=== PATIENT | male | born 1955 | race Caucasian/White ===

== ENCOUNTER 2024-07-04 09:57 | Observation (INO) ==
--- NOTE | 2024-07-01 08:31 | Anesthesiology Consultation ---
Date of Service July 01, 2024 Assessment & Plan (1) Encounter for pre-operative examination: - Per geographic information systems manager on 06/25/24: No known infectious disease contacts, current infectious disease symptoms in past 10 days or COVID positive test result in the past 30 days. Chart Review Chart Review: Acceptable Risk for Surgery and Patient NOT seen in Pre Admission Testing History Surgery Operation Date: 07/04/24 08:25 Proposed Procedures p Transurethral Resection Prostate - Tyler Hogue MD Height/Weight Height: 5 ft 4.5 in Weight: 74.843 kg Allergies Allergy/AdvReac Type Severity Reaction Status Date / Time No Known Allergies Allergy Unknown Verified 06/25/24 13:48 Medications Home Medications Medication Instructions Recorded Confirmed Last Taken aspirin 81 mg tablet,delayed 81 mg PO QAM 06/23/24 06/25/24 Unknown release (Roshan Low Dose Aspirin) celecoxib 200 mg capsule 200 mg PO BID 06/23/24 06/25/24 Unknown finasteride 5 mg tablet 5 mg PO QAM 06/23/24 06/25/24 Unknown levothyroxine 150 mcg tablet 150 mcg PO QAM 06/23/24 06/25/24 Unknown rosuvastatin 5 mg tablet 5 mg PO HS 06/23/24 06/25/24 Unknown sulfasalazine 500 mg tablet 1,500 mg PO BID 06/23/24 06/25/24 Unknown tamsulosin 0.4 mg capsule 0.4 mg PO QAM 06/23/24 06/25/24 Unknown Past Medical History Medical History (Updated 07/01/24 @ 08:28 by Juliane Caballero PA-C) BPH (benign prostatic hyperplasia) Esteban catheter in place History of melanoma under eye, removed Hyperlipidemia Hypothyroidism Rheumatoid arthritis Past Surgical History Surgical History History of carpal tunnel surgery of left wrist 1990 History of total right hip arthroplasty Hx of arthroscopy of left knee Hx of arthroscopy of shoulder left shoulder, 06/04/24 Hx of cardiac cath ~2018 or 2019, "having strange symptoms in his hands," [facility] [place], no stents>no longer has to see cardio Hx of cervical spine surgery C4-C6, ~2013>hardware intact Hx of lumbosacral spine surgery L5-S1, 1994 Hx of melanoma excision Social History Smoking Status: Never smoker Do You Dip or Chew Tobacco: No Hx Alcohol Use: No Hx Substance Use: No substance use type: does not use Lab Results Anesthesia Preop Results Results Anesthesia Widget: WBC 6.52 K/ul (4.8-10.8) 06/21/24 Hgb 15.5 g/dl (14.0-18.0) 06/21/24 Hct 45.8 % (42.0-52.0) 06/21/24 Plt 293 K/uL (130-400) 06/21/24 Na 139 mmol/L (136-145) 06/21/24 K 4.1 mmol/L (3.5-5.1) 06/21/24 Cl 106 mmol/L (98-107) 06/21/24 CO2 25 mmol/L (21-32) 06/21/24 BUN 21 mg/dl (6-23) 06/21/24 Creat 0.81 mg/dl (0.6-1.4) 06/21/24 Glucose Level 93 mg/dl (70-99(Fasting)) 06/21/24 Urine Color Yellow 06/21/24 Urine Appearance Clear (Clear) 06/21/24 Urine pH 6.5 (4.5-7.5) 06/21/24 Urine Specific Lamar 1.007 (1.000-1.030) 06/21/24 Urine Protein Negative (Negative) 06/21/24 Urine Glucose (UA) Negative (Negative) 06/21/24 Urine Ketones Negative (Negative) 06/21/24 Urine Blood 3+ (Negative) H 06/21/24 Urine Nitrite Negative (Negative) 06/21/24 Urine Bilirubin Negative (Negative) 06/21/24 Urine Urobilinogen Negative (Negative) 06/21/24 Urine Leukocyte Esterase Trace (Negative) H 06/21/24 Urine WBC (Auto) 0-5 /hpf (0-5) 06/21/24 Urine RBC (Auto) >20 /hpf (0-2) H 06/21/24 Urine Hyaline Casts (Auto) 0-2 /lpf (0-2) 06/21/24 Urine Epithelial Cells (Auto) 0-2 /hpf (0-2) 06/21/24 Urine Bacteria (Auto) None Seen (None Seen) 06/21/24 Testing Electrocardiogram Date: 06/04/24 NSR, rate 63 bpm Inferior infarct, age undetermined Chest X-Ray Date: 06/04/24 *1view* Mild elevation of the left hemidiaphragm and a left basilar airspace opacity. Other Testing Abdomen pelvis CT 06/21/24 Esteban catheter is seen with marked thickening of the bladder which may be infectious/inflammatory and/or related to chronic outlet obstruction in this patient with prostatomegaly. Nonobstructive nephrolithiasis is seen bilaterally. Hydroureteronephrosis is seen.
[~2024-07-04 09:57] MED LIST: DEXAMETHASONE SOD INJ 4 MG/ML VIAL ONE; LIDOCAINE 2% 2 ML VIAL/AMP(20MG/ML) INFIL ONE; MIDAZOLAM HCL 1 MG/ML 2ML VIAL ONE; ONDANSETRON INJ 2 MG/ML 2 ML VIAL ONE; PROPOFOL IV EMULSION 10 MG/ML 20 ML VIAL IV ONE; fentaNYL citrate PF 100 MCG/2 ML VIAL ONE
[2024-07-04] MEDS: LACTATED RINGER'S 1,000 ML IV SCH (10:48)
[2024-07-04] MEDS ORDERED: LABETALOL HCL IV 5 MG/ML 20ML IV PRN (11:01)
[2024-07-04] MEDS ORDERED: NALOXONE HCL 0.4 MG/1 ML VIAL/CARP IV PRN (11:01)
[2024-07-04] MEDS ORDERED: ONDANSETRON INJ 2 MG/ML 2 ML VIAL IV PRN ×2 (11:01→14:56)
[2024-07-04] MEDS ORDERED: ePHEDrine sulfate 50 MG/ML AMP IV PRN (11:01)
[2024-07-04] MEDS ORDERED: FLUMAZENIL 0.1 MG/1 ML 10 ML VIAL IV PRN (11:01)
[2024-07-04] MEDS ORDERED: ATROPINE SULFATE 0.1 MG/ML 10ML SYR IV PRN (11:01)
[2024-07-04] MEDS ORDERED: PROMETHAZINE HCL 6.25 MG in SODIUM CHLORIDE 0.9% 50 ML IV PRN (11:01)
--- NOTE | 2024-07-04 11:32 | History & Physical Bridge Note ---
Date of Service July 04, 2024 History & Physical Bridge Note I have examined the patient, reviewed the History & Physical and in the interval since the performance of the History & Physical I have noted the following changes of clinical significance: no changes noted
[2024-07-04] MEDS: cefTRIAXone SODIUM 1,000 MG MINI-B 50 ML IV SCH (11:54)
[2024-07-04] MEDS ORDERED: GLYCOPYRROLATE 0.2 MG/ML VIAL ONE (12:32)
[2024-07-04] MEDS ORDERED: ePHEDrine sulfate 50 MG/ML AMP ONE (12:37)
[2024-07-04] MEDS ORDERED: fentaNYL citrate PF 100 MCG/2 ML VIAL ONE (13:02)
--- NOTE | 2024-07-04 13:25 | Operative Report ---
PG Post Operative Report Pre & Post Diagnosis Operation Date: 07/04/24 12:10 Pre:BPH with urinary retention Post: BPH with urinary retention I identified the patient and participated in the time-out.: Yes Procedure Operation Date: 07/04/24 12:10 Actual Procedures p Transurethral Resection Prostate(Not Applicable) - Tyler Hogue MD Surgeon Tyler Hogue MD Banquet Chef none Estimated Blood Loss 5 (]) Findings Consistent with Post-Op Diagnosis Specimens prostate chips Description of Procedure The patient was identified in the preoperative holding area, appropriate informed consents were reviewed and completed and the patient was transferred to the operative suite. Upon arrival, appropriate antibiotics and anesthesia were administered and the patient was placed in dorsal lithotomy position and prepped and draped in sterile fashion. To begin the case I passed a 27 Chadian cystoscope with 30 degree lens and visual obturator peer inspection revealed a healthy-appearing urethra and a very large prostate with a substantial intravesical median lobe. Lateral lobe obstruction was also present. Bladder was moderately trabeculated but otherwise healthy with minor catheter related cystitis. Following my inspection I utilized a loop electrode to begin resection of the median lobe. Of note, upon initial entry was very difficult to visualize the UOs but I carefully resected and inspected until I could confirm the location of the UOs immediately behind the median lobe. I then was able to more aggressively resect the remainder of the median lobe until it was flush with the bladder neck. I proceeded to resect the left lateral lobe next followed by the right lateral lobe. Apical tissue was trimmed to complete the resection. There was a substantial amount of posterior tissue which also was resected. At the conclusion of the resection I irrigated all chips free of the bladder. Of note, this is a large volume TURP with a substant ial specimen. We then reentered the bladder and obtained meticulous hemostasis. I felt that resection was complete and should offer substantial improvement in terms of his urinary pattern. He 22 Chadian Esteban catheter was inserted and the balloon inflated with 30 cc of sterile water. He was reversed of anesthesia and taken to the recovery room in stable condition. There were no complications. I attest to the content of the Intraoperative Record and any orders documented therein. Any exceptions are noted below.
[2024-07-04] MEDS: fentaNYL citrate PF 100 MCG/2 ML VIAL IV PRN (13:32)
--- NOTE | 2024-07-04 14:21 | Anesthesiology Progress Note ---
Date of Service July 04, 2024 Anesthesia Post Procedure Vital Signs Vital Signs: Temp Pulse Pulse Resp BP Pulse Ox O2 Del Method 07/04/24 14:15 56 L 12 118/68 94 Nasal Cannula 07/04/24 14:05 36.2 C L 62 18 124/62 97 Nasal Cannula 07/04/24 13:55 66 20 142/77 H 94 Nasal Cannula 07/04/24 13:45 70 14 122/73 96 Oxymask 07/04/24 13:35 72 12 137/71 99 Oxymask 07/04/24 13:25 36.2 C L 84 15 140/81 97 Oxymask 07/04/24 10:55 37.1 C 62 20 182/95 H 98 Room Air O2 Flow Rate 07/04/24 14:15 2 07/04/24 14:05 2 07/04/24 13:55 2 07/04/24 13:45 2 07/04/24 13:35 11 07/04/24 13:25 11 07/04/24 10:55 Pain Intensity Left Shoulder: Pain Intensity: 3 Penis: Pain Intensity: 8 Transfer of Care Handoff Completed per policy Notes Mental Status: alert / awake / arousable Patient Amnestic to Procedure: Yes Nausea / Vomiting: adequately controlled Pain: adequately controlled Airway Patency, RR, SpO2: stable & adequate BP & HR: stable & adequate Hydration State: stable & adequate Anesthetic Complications: no major complications apparent
[2024-07-04] MEDS: SODIUM CHLORIDE 0.9% 1,000 ML IV SCH (15:23)
[2024-07-04] MEDS: ACETAMINOPHEN 325 MG TAB PO PRN (16:03)
[2024-07-04] MEDS: CeleBREX 200 MG CAP PO SCH (20:34)
[2024-07-04] MEDS: ROSUVASTATIN CALCIUM 5 MG TAB PO SCH (20:35)
[2024-07-04] MEDS: sulfaSALAzine 500 MG TABLET PO SCH (20:35)
[2024-07-05] MEDS: PHENAZOPYRIDINE HCL 200 MG TAB PO PRN (05:20)
[2024-07-05] MEDS: LEVOTHYROXINE SODIUM 150 MCG TABLET PO SCH (05:20)
[2024-07-05 06:53] LABS: Hematocrit (blood only) 37.9 % (42.0-52.0); Hemoglobin 12.5 g/dl (14.0-18.0); Mean Corpuscular Hemoglobin 30.2 pg (25.0-34.0); Mean Corpuscular Volume 91.5 fL (80.0-100.0); Mean Platelet Volume 10.1 fL (9.4-12.4); Platelet Count 201 K/uL (130-400); RDW Coefficient of Variation 12.7 % (11.5-14.5); RDW Standard Deviation 42.5 fL (36.4-46.3); Red Blood Count 4.14 M/uL (4.70-6.10); White Blood Count 8.16 K/ul (4.8-10.8)
[2024-07-05 07:09] LABS: BUN Creatinine Ratio 27.5 (10-20); Calcium 8.8 mg/dl (8.6-10.3); Creatinine Clr Calc Pharmacy 81.5 ml/min; Est GFR (African American) 105.6 ml/min; Est GFR (Non-African American) 91.1 ml/min
--- NOTE | 2024-07-05 09:13 | Urology Progress Note ---
Date of Service July 05, 2024 Assessment & Plan (1) Hematuria: (2) Benign prostatic hyperplasia (BPH) with straining on urination: (3) Esteban catheter in place: Plan 69-year-old male who is status post TURP on 07/04/2024. The void trial was performed by urology this morning. Catheter was instilled in the 150 cc of fluid and then removed. Patient immediately voided. Afebrile with stable vitals and labs stable Patient stable for discharge home whenever his ride arrives Discussed postoperative expectations Admission and Anticipated Discharge Date Admission Date: July 04, 2024 Subjective 69-year-old male who is status post TURP on 07/04/2024. Afebrile with stable vitals. Labs appropriate for today. Patient feeling fairly well. Catheter was removed on rounds and patient passed a void trial. Feels comfortable going home. Physical Exam Physical Exam: General: Alert and oriented, no acute distress HEENT: Normocephalic, mucous membranes moist Pulmonary: Nonlabored respirations Abdomen: Nondistended : Esteban catheter draining thin orange urine Extremities: Moves all 4 spontaneously Neuro: No gross deficits Skin: Warm, dry, no rashes noted Results & Data Vital Signs (Past 12 Hours) Vital Signs Temp Pulse Resp BP Pulse Ox O2 Del Method 07/05/24 08:00 36.5 C 58 L 16 118/60 93 Room Air 07/05/24 02:44 36.4 C L 54 L 14 123/67 92 Room Air 07/04/24 23:21 36.2 C L 52 L 16 143/60 H 95 Room Air PG Care Time/CCT Total # of Minutes Spent Total Time Spent with Patient: Total time spent is greater than 50% in coordination of care (as documented) at patient's floor/unit and/or counseling patient: Coding Level of Care Code 80561 SUB INP/OBS CARE 2/35MIN Diagnoses Hematuria R31.0 Hematuria type: gross Benign prostatic hyperplasia (BPH) with straining on urination N40.1; R39.[address] Z97.8 (1) Hematuria Hematuria type: gross Qualified Code(s): R31.0 - Gross hematuria
--- NOTE | 2024-07-05 09:17 | Discharge Summary ---
Date of Service July 05, 2024 Principal Diagnosis BPH with urinary retention Discharge Exam General: Alert and oriented, no acute distress HEENT: Normocephalic, mucous membranes moist Pulmonary: Nonlabored respirations Abdomen: Nondistended Extremities: Moves all 4 spontaneously Neuro: No gross deficits Skin: Warm, dry, no rashes noted Discharge Data Allergies Allergy/AdvReac Type Severity Reaction Status Date / Time No Known Allergies Allergy Unknown Verified 07/04/24 10:47 Procedures Performed Operation Date: 07/04/24 12:10 Actual Procedures p Transurethral Resection Prostate(Not Applicable) - Tyler Hogue MD Hospital Course (1) Benign prostatic hyperplasia (BPH) with straining on urination: (2) Esteban catheter in place: Plan Patient was admitted and had a TURP on 07/04/2024. Was kept overnight. Afebrile with stable vitals. Labs stable. Catheter was draining without issue. Void trial was performed on postoperative day 1 and he passed. Stable for discharge home. Total Time Total Time Spent Total Time Spent (In Minutes): 10 Discharge Plan Discharge Items Patient Disposition: Home - Self-Care Reason For Visit: BPH Discharge Diagnosis: Same Activity: Resume your previous activity Non-emergency contact: Urologist Call non-emergency contact if: you have any medication questions, your pain is worsening and your temperature is above 101 Follow-up/Referrals: Preston Kang [Primary Care Provider] - Diet: Regular Addtl Attending Provider Instructions: -Continue your home medications unless changes listed below. -MiraLAX [id number] as needed for constipation -Continue your previous diet. -Call the office at [phone] if your Esteban catheter is not draining or you have fevers greater than 101 F -You will get called regarding a visit fpr follow Pending Studies at Discharge: No Stand-Alone Forms: My Ang[employer], Smoking Cessation Medications and DC Order Prescriptions: Continued levothyroxine 150 mcg tablet 150 mcg PO QAM rosuvastatin 5 mg tablet 5 mg PO HS finasteride 5 mg tablet 5 mg PO QAM tamsulosin 0.4 mg capsule 0.4 mg PO QAM aspirin [Roshan Low Dose Aspirin] 81 mg tablet,delayed release (DR/EC) 81 mg PO QAM sulfasalazine [Azulfidine] 500 mg tablet 1,500 mg PO BID Rx Instructions: give with food (meal/snack) celecoxib [Celebrex] 200 mg capsule 200 mg PO BID Discharge Orders: Discharge Order (Routine); Ordered 07/05/24 Ordered By: Carlos Dougherty Admission Data Admit Date/Time: 07/04/24 13:22 Attending Provider: Tyler Hogue Admit Provider: Tyler Hogue Primary Care Provider: Preston Kang Coding Level of Care Code 05242 IN/OBS DISCH 30 MIN/LESS Diagnoses Benign prostatic hyperplasia (BPH) with straining on urination N40.1; R39.[address] Z97.8
[2024-07-05 11:36] VITALS: BP 118/60; PULSE 58; RESP 16; TEMP 97.7; O2SAT 93
[2024-07-05] MEDS: cefTRIAXone SODIUM 1,000 MG/50 ML BAG IV SCH (13:02)
== END 2024-07-05 13:04 | disposition home or self-care (01) ==
LOC: ASU 09:57 → 3N 09:57